=== PATIENT | female | born 1995 | race Caucasian/White ===

== ENCOUNTER 2021-01-17 00:15 | Emergency (ER) | payer BC ==
[~2021-01-17] VITALS: Ht 157.5 cm; Wt 57.6 kg
[2021-01-17] MEDS ORDERED: IBUPROFEN 400 MG TABLET ONE (01:36)
[2021-01-17] MEDS: IBUPROFEN 400 MG TABLET PO ONE (01:44)
[2021-01-17 02:38] VITALS: BP 125/70
--- NOTE | 2021-01-17 02:38 | NUR ---
FREDRICK WRAP PROVIDED.
--- NOTE | 2021-01-17 02:38 | NUR ---
Patient discharged to home in stable condition. Written and verbal after care instructions given. Patient verbalizes understanding of instruction. RX given
== END 2021-01-17 02:39 | disposition home or self-care (01) ==
LOC: ER 00:22
DX: S83.8X2A Sprain of other specified parts of left knee, initial encounter (principal); Z91.048 Other nonmedicinal substance allergy status; X58.XXXA Exposure to other specified factors, initial encounter; Y93.01 Activity, walking, marching and hiking; Y92.89 Other specified places as the place of occurrence of the external cause; Y99.8 Other external cause status
CPT/HCPCS: 73564-TC